=== PATIENT | male | born 1980 | race Caucasian/White ===

== ENCOUNTER 2024-06-02 15:34 | Emergency (ER) | payer BC, SELFPAY ==
--- OUTSIDE RECORDS SUMMARY | 2024-06-02 15:36 | XMS_ITS | Clinical Summary ---
Author Organization [employer] [facility] Address [address] [place] [address] Care Team Providers Care Gin Clerk Name Role Phone Magalis Alberto MD Primary Care Provider Allergies No known active allergies Medications clobetasol cream 0.05% (TEMOVATE) 0.05 % creamIndications: Rash Apply topically to affected area(s) two times daily. 30 g 10/06/19 23 Active lisinopriL (PRINIVIL; ZESTRIL) 20 mg tabletIndications :Hypertension, unspecified type Take 1 Tablet (20 mg) by mouth once daily. 90 Tablet 3 06/14/19 24 Active dextroamphetamine -amphetamine (ADDERALL XR) 15 mg Extended-Release capsuleIndication s:Attention deficit disorder, unspecified hyperactivity presence Take 1 Capsule (15 mg) by mouth once daily. 30 Capsule 09/27/19 24 Active dextroamphetamine -amphetamine (Adderall XR) 15 mg Extended-Release capsuleIndication s:Attention deficit hyperactivity disorder (ADHD), predominantly inattentive type Take 1 Capsule (15 mg) by mouth once daily. 30 Capsule 5 6:20 PM CDT 05/13/19 25 Active valACYclovir 1 gram tabletIndications :Herpes labialis Take 1 Tablet by mouth two times daily. 2 Tablet 05/19/19 25 Active valACYclovir (VALTREX) 1 gram tabletIndications :Herpes labialis Take 1 Tablet (1 g) by mouth two times daily. 2 Tablet 5 06/14/19 24 025 Discontinued dextroamphetamine -amphetamine (Adderall XR) 15 mg Extended-Release capsuleIndication s:Attention deficit hyperactivity disorder (ADHD), predominantly inattentive type Take 1 Capsule (15 mg) by mouth once daily. 30 Capsule 5 1:38 PM TUBE WORKER 04/12/19 25 025 Active Problems Problem Noted Date Diagnosed Date Elevated blood pressure reading 05/05/2021 Right groin pain 01/20/2016 Encounters Date Type Department Care Team Description 06/02/2024 Nurse Triage [facility] [address] [place] [address] Magalis Alberto MD Leg Pain/problem 05/16/2024 Refill [facility] [address] [place] [address] Magalis Alberto MD Refill Request (Valacyclovir) 03/13/2024 Refill [facility] [address] [place] [address] Magalis Alberto MD Refill Request (Adderall ) from Last 3 Months Immunizations Immunization Administration Dates Next Due DTP 12/03/1986, 5,08/03/1982,05/05/1982, 03/08/1982 Hepatitis B (Peds) 12/14/1997,03/16/1997, 997 Influenza, IIV3 (Age >=3 years) 10/19/2008,11/28 MMR 06/02/1994,05/16/1983 Oral Polio Vaccine 11/23/1986,10/23/1984, 983,03/08/1982 Td (Age >=7 Years) 09/17/1996 Tdap 11/19/2019,08/06/2006 Family History Relation Name Status Comments Father Alive Mother Alive Social History Tobacco Use Types Packs/Day Years Used Date Smoking Tobacco: Former Smokeless Tobacco: Never Tobacco Cessation:Counseling Given: Yes Alcohol Use Standard Drinks/Week Comments Yes 4 (1 standard drink = 0.6 oz pur e alcohol) weekends PHQ-2 Answer Date Recorded PHQ-2 TOTAL SCORE 0 11/18/2021 Social Connections Answer Date Recorded Frequency of Communication with Friends and Fami ly 0 12/15/2022 Financial Resource Strain Answer Date R ecorded Difficulty of Paying Living Expenses 3 12/15/2022 Difficulty of Paying Living Expenses Not on file 12/15/2022 Food Insecurity Answer Date Recorded Do you worry your food will run out before you are able to buy more? 1 12/15/2022 Transportation Needs Answer Date Record ed Lack of Transportation (Medical) 1 12/15/2022 Housing Stability Answer Date Recorded What is your housing situation today? 1 12/15/2022 Sex and Gender Information Value Date Recorded Sex Assigned at Not on file Legal Sex Male 7:20 AM TUBE WORKER Gender Identity Not on file Sexual Orientation Not on file Obstetrics History Last Filed Vital Signs Vital Sign Reading Time Taken Comments Blood Pressure 133/86 06/14/2023 8:03 AM CDT Pulse 98 06/14/2023 8:03 AM CDT Temperature 36.9 C (98.4 F) 09/26/2022 4:22 PM CDT Respiratory Rate 15 02/13/2019 4:12 PM TUBE WORKER Oxygen Saturation 100% 06/14/2023 8:03 AM CDT Inhaled Oxygen Concentration - - Weight 86.3 kg (190 lb 3.2 oz) 06/14/2023 8:03 A M CDT Height 170.2 cm (5' 7) 06/14/2023 8:03 AM CDT Body Mass Index 29.79 06/14/2023 8:03 AM CDT Plan of Treatment Health Maintenance Due Date Last Done Comments Depression screening for age 12+ 11/18/2022 11/18/2021, 02/13/2019, 07/30/2017, Additional history exists COVID-19 vaccine series ( season) 2023 BMI (ht and wt on same day) for age 18+ 06/13/2024 06/14/2023, 12/15/2022, 11/18/2021, Additional history exists Influenza Vaccine (Season Ended) 2024 10/19/2008, 11/29/2007 Lipids for age 35-44 11/05/2025 11/05/2020 Tetanus booster 11/18/2029 11/19/2019, 07/20, 09/17/1996 Tdap Completed 11/19/2019, 08/06/2006 Hepatitis C screening for age 18-79 Completed 11/18/2021 HIV for age 15-65 Completed 12/15/2022 Pneumococcal series for age 6-49 Aged Out No longer eligible based on patient's age to complete this topic Procedures Procedure Name Priority Date/Time Associated Diagnosis Comments ANTI HIV 1/2 Routine 12/15/2022 2:17 PM CDT Screening for HIV (human immunodeficiency virus) ANTI HCV Routine 11/18/2021 12:57 PM CDT Need for hepatitis C screening test LIPID PANEL W REFLEX MEASURED LDL Routine 11/05/2020 10:55 AM CDT Screening for lipid disorders from Last 3 Months or Most Recently Relevant to Health Maintenance Results * ANTI HIV 1/2 [50968.0] (12/15/2022 2:17 PM CDT) Pathologist [facility] HIV-1/HIV-2 SCREEN Non-Reacti ve Non-Reacti ve 12/16/2022 1:30 PM CDT [facility] Comment:HIV-1 p24 and HIV-1/ HIV-2 Ab Not Detected. Blood BLOOD SPECIMEN / Unknown Venipuncture / Unknown 12/15/2022 2:17 PM CDT 12/15/2022 2:17 PM CDT us Magalis Alberto MD SEND OUTS Final R [facility] [address] [place] [address], * ANTI HCV (11/18/2021 12:57 PM CDT) HEPATITIS C ANTIBODY Non-React rojas Non-React rojas 11/19/2021 10:10 AM CDT [facility] Comment:Antibodies to HCV no t detected; does not exclude the possibility of exposure to HCV. Blood BLOOD SPECIMEN / Unknown Venipuncture / Unknown 11/18/2021 12:57 PM CDT 11/18/2021 12:58 PM CDT us Magalis Alberto MD SEND OUTS Final R esult [facility] [address] [place] [address], [place] * LIPID PANEL W REFLEX MEASURED LDL [[id number]] (11/05/2020 10:55 AM CDT) CHOLESTEROL,TOTAL 192 100 - 199 mg/dL 11/05/2020 5:24 PM CDT [facility] TRIGLYCERIDES 100 <150 mg/dL 11/05/2020 5:24 PM CDT [facility] HDL CHOLESTEROL 49 >40 mg/dL 5:24 PM CDT [facility] NON-HDL CHOLESTEROL 143 <145 mg/dl 11/05/2020 5:24 PM CDT [facility] CHOL/HDL RATIO 3.92 <4.50 11/05/2020 5:24 PM CDT [facility] LDL CHOLESTEROL 123 <=130 mg/dL 11/05/2020 5:24 PM CDT [facility] VLDL CHOLESTEROL 20 <=30 mg/dL 11/05/2020 5:24 PM CDT [facility] PROVIDER ORDERED STATUS RANDOM 11/05/2020 5:24 PM CDT [facility] Blood BLOOD SPECIMEN / Unknown Venipuncture / Unknown 11/05/2020 10:55 AM CDT 11/05/2020 10:55 AM CDT us Magalis Alberto MD CHEMISTRY Final R esult [facility] [address] [place] [address], [place] from Last 3 Months or Most Recently Relevant to Health Maintenance Insurance [employer] [place] Care Teams Gin Clerk Relationship Specialty Start Date End Date Magalis Alberto MD [address] [place] [address] PCP - General Family Practice 05/03/17
[2024-06-02 15:40] VITALS: BP 117/78; PULSE 99; RESP 18; TEMP 37.2; O2SAT 99; BMI 29.0
--- NOTE | 2024-06-02 15:48 | CRLHL7_ITS ---
For Patients: As a result of the Century Cures Act, medical imaging exams and procedure reports are released immediately into your electronic medical record. You may view this report before your referring provider. If you have questions, please contact your health care provider. INDICATION: Right calf pain, immobilized due to rt ankle injury TECHNIQUE: Venous duplex ultrasound of the right lower extremity utilizing compression with green-scale, color Doppler, and spectral Doppler imaging. COMPARISON: None FINDINGS: Acute, occlusive deep vein thrombosis in the right posterior tibial and peroneal veins. There is no sonographic evidence of deep vein thrombosis in the right common femoral, deep femoral, superficial femoral, popliteal, or contralateral common femoral veins. There is no visualized superficial vein thrombosis. The soft tissues are unremarkable. IMPRESSION: Acute, occlusive deep vein thrombosis in the right posterior tibial and peroneal veins. Preliminary report was provided by the patient`s news director to the emergency department at approximately 4:50 p.m. on 06/02/2024. Dictated by Julien Bailey MD @ 06/02/2024 5:24:46 PM (Electronically Signed)
--- NOTE | 2024-06-02 17:50 | ED.GENADULT ---
HPI - General Adult General Chief complaint: Extremity Pain/Injury, Lower Stated complaint: Blood clot in right leg Time Seen by Provider: 06/02/24 17:13 History of Present Illness HPI narrative: This 43-year-old male comes in reporting pain in his right calf. He is wearing a walking boot but is currently not weight-bearing after an injury that occurred a couple weeks ago. He was recommended to have surgery to repair 3 major ligaments supporting his ankle but he declined this surgery partly because there was reassuring findings with stress or weight-bearing x-rays in the ortho department that were reassuring. After several days in the walking boot he had developed calf pain and comes in today. Ultrasound of the right lower extremity does show deep venous thrombosis. The patient does not report any chest pain or shortness of breath. He has normal vital signs. Related Data Home Medications ?Medication ?Instructions ?Recorded ?Confirmed dextroamphetamine-amphetamine ER 1 cap PO DAILY 06/02/24 06/02/24 15 mg 24hr capsule,extend release lisinopril 20 mg tablet 20 mg PO DAILY 06/02/24 06/02/24 Previous Rx's ?Medication ?Instructions ?Recorded apixaban 5 mg (74 tabs) tablets in See Rx Instructions PO .COMPLEX 06/02/24 a dose pack (Uplogix DVT-PE Treat #74 ea 30D Start) Allergies Allergy/AdvReac Type Severity Reaction Status Date / Time No Known Drug Allergies Allergy Verified 06/02/24 15:47 Review of Systems Status of ROS: Reports: 10 or more systems reviewed and unremarkable except as noted in History and below Narrative: Constitutional: No fevers, no weight gain or loss. Eyes: No discharge. No vision changes. HENT: No congestion, no sore throat, no ear pain. Cardiovascular: No chest pain, no palpitations. Respiratory: No shortness of breath, no wheezes, no cough. Gastrointestinal: No abdominal pain, no vomiting, no diarrhea. Genitourinary: No dysuria, no hematuria. Musculoskeletal: Right ankle injury in a boot. Right calf pain. Skin: No rashes, no pruritis. Neurological: No dizziness, weakness, sensory change, speech change. Endo/Heme/Allergies: No bruising or bleeding. No polydipsia. Pysch: no suicidality, no anxiety, no insomnia. All other systems reviewed and are negative. Exam Const: Vital Signs, click to edit/add: Vital Signs - 24 hr 06/02/24 15:40 Temperature 99.0 F Pulse Rate [Right Pulse Oximeter] 99 Respiratory Rate 18 Blood Pressure [Ri ght Forearm] 117/78 Pulse Oximetry 99 Oxygen Delivery Me thod Room Air Course Vital Signs Vital signs: Initial Vital Signs Temperature 99.0 F 06/02/24 15:40 Temperature Source Temporal Artery Scan 06/02/24 15:40 Pulse Rate 99 06/02/24 15:40 Pulse Rhythm Regular 06/02/24 15:40 Pulse Strength 3+ Normal 06/02/24 15:40 Respiratory Rate 18 06/02/24 15:40 Blood Pressure 117/78 06/02/24 15:40 Blood Pressure Mean 91 06/02/24 15:40 Blood Pressure Position Sitting 06/02/24 15:40 Pulse Oximetry 99 06/02/24 15:40 Oxygen Delivery Method Room Air 06/02/24 15:40 Vital Signs Temperature 99.0 F 06/02/24 15:40 Pulse Rate 99 06/02/24 15:40 Respiratory Rate 18 06/02/24 15:40 Blood Pressure 117/78 06/02/24 15:40 Pulse Oximetry 99 06/02/24 15:40 Oxygen Delivery Method Room Air 06/02/24 15:40 Temperature 99.0 F 06/02/24 15:40 Pulse Rate 99 06/02/24 15:40 Respiratory Rate 18 06/02/24 15:40 Blood Pressure 117/78 06/02/24 15:40 Pulse Oximetry 99 06/02/24 15:40 Oxygen Delivery Method Room Air 06/02/24 15:40 Medical Decision Making [facility] Narrative Medical decision making narrative: This patient comes in with pain in his right calf and ultrasound imaging shows evidence of deep venous thrombus. The patient does not have any abnormal vital signs and denies having any shortness of breath or chest pain. I did discuss the role of CT imaging of his lungs but indicated in any event that he needs to be on anticoagulant. He declined any further testing at this time. I did recommend Eliquis and the patient agrees to this plan. He received his 1st dose here and a prescription is provided for ongoing management. He has follow-up plans with his orthopedic doctor and will need to connect with his primary physician. Discharge Plan Discharge Clinical Impression: Deep venous thrombosis Patient Disposition: Home, Self-Care Condition: Unchanged Additional Instructions: Take medication as prescribed. Avoid and states. Follow up with primary physician for ongoing management. Prescriptions: New Eliquis DVT-PE Treat 30D Start 5 mg (74 tabs) tablets,dose pack See Rx Instructions PO .COMPLEX Qty: 74 0RF Rx Instructions: orally per package directions No Action lisinopril 20 mg tablet 20 mg PO DAILY dextroamphetamine-amphetamine 15 mg capsule,extended release 24hr 1 cap PO DAILY Follow Up/Referrals: Magalis Alberto MD [Primary Care Provider] - Stand Alone Forms: [employer] Info Instructions
[2024-06-02] MEDS: APIXABAN 5 MG TABLET 10 MG PO (18:19)
--- OUTSIDE RECORDS SUMMARY | 2024-06-02 18:26 | XMS_ITS | Clinical Summary ---
Author Organization [employer] [facility] Address [address] [place] [address] Care Team Providers Care Insect Control Inspector Name Role Phone Magalis Albetro MD Primary Care Provider Allergies No known [...] once daily. 30 Capsule 5 1:38 PM SALES MARKETING MANAGER 04/12/19 25 025 Active Problems Problem Noted Date Diagnosed Date Elevated blood pressure reading 05/05/2021 Right groin pain 01/20/2016 Encounters Date Type Department Care Team Description 06/02/2024 Nurse Triage [facility] [address] [place] [address] Magalis Alberto MD Leg Pain/problem 05/16/2024 Refill [facility] [address] [place] [address] Magalis Alberto MD Refill Request (Valacyclovir) 03/13/2024 Refill [facility] [address] [place] [address] Magalis Alberto MD Refill Request (Adderall ) [...] on file Legal 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 Gender Identity Not on file Sexual Orientation Not on file Obstetrics History Last Filed Vital Signs Vital Sign Reading Time Taken Comments Blood Pressure 133/86 06/14/2023 8:03 AM CDT Pulse 98 06/14/2023 8:03 AM CDT Temperature 36.9 C (98.4 F) 09/26/2022 4:22 PM CDT Respiratory Rate 15 02/13/2019 4:12 PM SALES MARKETING MANAGER Oxygen Saturation 100% 06/14/2023 8:03 AM CDT [...] Health Maintenance Results * ANTI HIV 1/2 [47376.0] (12/15/2022 2:17 PM CDT) Pathologist [facility] [place] HIV-1/HIV-2 SCREEN Non-Reacti ve Non-Reacti ve 12/16/2022 1:30 PM CDT [facility] Comment:HIV-1 p24 and HIV-1/ HIV-2 Ab Not Detected. Blood BLOOD SPECIMEN / Unknown Venipuncture / Unknown 12/15/2022 2:17 PM CDT 12/15/2022 2:17 PM CDT us Magalis Alberto MD SEND OUTS Final R es[facility] [address] [place] [address], * ANTI HCV (11/18/2021 12:57 PM CDT) HEPATITIS C ANTIBODY Non-React rojas Non-React rojas 11/19/2021 10:10 AM CDT [facility] Comment:Antibodies to HCV no t detected; does not exclude the possibility of exposure to HCV. Blood BLOOD SPECIMEN / Unknown Venipuncture / Unknown 11/18/2021 12:57 PM CDT 11/18/2021 12:58 PM CDT us Magalis Alberto MD SEND OUTS Final R esult [facility] [address] [place] [address], [place] * LIPID PANEL W REFLEX MEASURED LDL [[id number]] (11/05/2020 10:55 AM CDT) CHOLESTEROL,TOTAL 192 100 - 199 mg/dL 11/05/2020 5:24 PM CDT [facility] TRIGLYCERIDES 100 <150 mg/dL 11/05/2020 5:24 PM CDT [facility] HDL CHOLESTEROL 49 >40 mg/dL 5:24 PM CDT [facility] NON-HDL CHOLESTEROL 143 <145 mg/dl 11/05/2020 5:24 PM CDT [facility] CHOL/HDL RATIO 3.92 <4.50 11/05/2020 5:24 PM CDT [facility] LDL CHOLESTEROL 123 <=130 mg/dL 11/05/2020 5:24 PM CDT [facility] VLDL CHOLESTEROL 20 <=30 mg/dL 11/05/2020 5:24 PM CDT [facility] PROVIDER ORDERED STATUS RANDOM 11/05/2020 5:24 PM CDT [facility] Blood BLOOD SPECIMEN / Unknown Venipuncture / Unknown 11/05/2020 10:55 AM CDT 11/05/2020 10:55 AM CDT us Magalis Alberto MD CHEMISTRY Final R esult [facility] [address] [place] [address], [place] from Last 3 Months or Most Recently Relevant to Health Maintenance Insurance [place] [address] Care Teams Insect Control Inspector Relationship Specialty Start Date End Date Magalis Alberto MD [address] [place] [address] PCP - General Family Practice 05/03/17
== END 2024-06-02 18:29 | disposition home or self-care (01) ==
LOC: ED 18:24
PROVIDERS: Emergency Provider Emergency Medicine Emergency Medical Services; PCP Family Medicine
DX: I82.4Z1 Acute embolism and thrombosis of unspecified deep veins of right distal lower extremity (principal)
CPT/HCPCS: 93971; 99284; A9270

== ENCOUNTER 2024-06-03 06:33 | Emergency (ER) | payer BC, SELFPAY ==
--- OUTSIDE RECORDS SUMMARY | 2024-06-03 06:36 | XMS_ITS | Clinical Summary ---
Author Organization [employer] [facility] Address [address] [place] [address] Care Team Providers Care Experimental Technician Name Role Phone Magalis Alberto MD Primary [...] once daily. 30 Capsule 5 1:38 PM COLOR CHECKER 04/12/19 25 025 Active Problems Problem Noted Date Diagnosed Date Elevated blood pressure reading 05/05/2021 Right groin pain 01/20/2016 Encounters Date Type Department Care Team Description 06/02/2024 Nurse Triage [facility] [address] [place] [address] Magalis Alberto MD Leg Pain/problem 05/16/2024 Refill [facility] [address] [place] [address] Magalis Alberto MD Refill Request (Valacyclovir) 03/13/2024 Refill [facility] [address] [place] [address] Magalis Alberto MD Refill Request (Adderall ) [...] on file Legal Sex Male 7:20 AM COLOR CHECKER Gender Identity Not on file Sexual Orientation Not on file Obstetrics History Last Filed Vital Signs Vital Sign Reading Time Taken Comments Blood Pressure 133/86 06/14/2023 8:03 AM CDT Pulse 98 06/14/2023 8:03 AM CDT Temperature 36.9 C (98.4 F) 09/26/2022 4:22 PM CDT Respiratory Rate 15 02/13/2019 4:12 PM COLOR CHECKER Oxygen Saturation 100% 06/14/2023 8:03 AM CDT [...] Health Maintenance Results * ANTI HIV 1/2 [[id number]] (12/15/2022 2:17 PM CDT) Pathologist [facility] HIV-1/HIV-2 SCREEN Non-Reacti ve Non-Reacti ve 12/16/2022 1:30 PM CDT [facility] Comment:HIV-1 p24 and HIV-1/ HIV-2 Ab Not Detected. Blood BLOOD SPECIMEN / Unknown Venipuncture / Unknown 12/15/2022 2:17 PM CDT 12/15/2022 2:17 PM CDT us Magalis Alberto MD SEND OUTS Final R [facility] [address] [place] [address], * ANTI HCV (11/18/2021 12:57 PM CDT) [...] Alberto MD SEND OUTS Final R esult [facility] [address] [place] [address], [place] * LIPID PANEL W REFLEX MEASURED LDL [[id number]] (11/05/2020 10:55 AM CDT) CHOLESTEROL,TOTAL 192 100 - 199 mg/dL 11/05/2020 5:24 PM CDT [facility] TRIGLYCERIDES 100 <150 mg/dL 11/05/2020 5:24 PM CDT [facility] HDL CHOLESTEROL 49 >40 mg/dL 5:24 PM CDT [facility] NON-HDL CHOLESTEROL 143 <145 mg/dl 11/05/2020 5:24 PM CDT [facility] CHOL/HDL RATIO 3.92 <4.50 11/05/2020 5:24 PM CDT [facility] LDL CHOLESTEROL 123 <=130 mg/dL 11/05/2020 5:24 PM CDT [facility] VLDL CHOLESTEROL 20 <=30 mg/dL 11/05/2020 5:24 PM CDT [facility] PROVIDER ORDERED STATUS RANDOM 11/05/2020 5:24 PM CDT [facility] Blood BLOOD SPECIMEN / Unknown Venipuncture / Unknown 11/05/2020 10:55 AM CDT 11/05/2020 10:55 AM CDT us Magalis Alberto MD CHEMISTRY Final R esult [facility] [address] [place] [address], [place] from Last 3 Months or Most Recently Relevant to Health Maintenance Insurance [place] [address] Care Teams Experimental Technician Relationship Specialty Start Date End Date Magalis Alberto MD [address] [place] [address] PCP - General Family Practice 05/03/17
[2024-06-03 06:41] VITALS: BP 141/93; PULSE 89; RESP 20; TEMP 36.3; O2SAT 100; BMI 29.0
--- NOTE | 2024-06-03 06:51 | ED.GENADULT ---
HPI - General Adult General Chief complaint: Shortness of Breath/Dyspnea Stated complaint: right leg blood cloth- shortness breath Time Seen by Provider: 06/03/24 06:51 History of Present Illness HPI narrative: Patient returns to [facility] with c/o shortness of breath and chest congestion. Patient was dx with DVT last night at given his first dose of Eliquis. Patient denies new pain. 43-year-old man presenting to the emergency department with concern of shortness of breath perhaps. 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 Is not really having pain he is not feeling otherwise short of breath no lightheadedness. Has been feeling generally warm for some time. No head cold symptoms or fever otherwise. Recent DVT diagnosis comes following a period of immobility with injury to the right ankle. Reviewing imaging shows that there was a DVT diagnosed yesterday in the right posterior tibial and peroneal veins. 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 He is wondering if this might be some other reason for his chest symptoms. INDICATION: Right calf pain, immobilized due to rt ankle injury TECHNIQUE: Venous duplex ultrasound of the right lower extremity utilizing compression with green-scale, color Doppler, and spectral Doppler imaging. COMPARISON: None FINDINGS: Acute, occlusive deep vein thrombosis in the right posterior tibial and peroneal veins. There is no sonographic evidence of deep vein thrombosis in the right common femoral, deep femoral, superficial femoral, popliteal, or contralateral common femoral veins. There is no visualized superficial vein thrombosis. The soft tissues are unremarkable. IMPRESSION: Acute, occlusive deep vein thrombosis in the right posterior tibial and peroneal veins. Preliminary report was provided by the patient`s aperture mask etcher to the emergency department at approximately 4:50 p.m. on 06/02/2024. Dictated by Julien Bailey MD @ 06/02/2024 5:24:46 PM Related Data Home Medications ?Medication ?Instructions ?Recorded ?Confirmed dextroamphetamine-amphetamine ER 1 cap PO DAILY 06/02/24 06/02/24 15 mg 24hr capsule,extend release lisinopril 20 mg tablet 20 mg PO DAILY 06/02/24 06/02/24 Previous Rx's ?Medication ?Instructions ?Recorded apixaban 5 mg (74 tabs) tablets in See Rx Instructions PO .COMPLEX 06/02/24 a dose pack (Eliquis DVT-PE Treat #74 ea 30D Start) Allergies Allergy/AdvReac Type Severity Reaction Status Date / Time No Known Drug Allergies Allergy Verified 06/02/24 15:47 Review of Systems Status of ROS: Reports: 6 or more systems reviewed and unremarkable except as noted in History and below Exam Narrative: Exam Narrative: Appears generally well. Here with healing scooter and walking boot. Breathing easily. Lungs are clear. Heart in regular rate and rhythm without murmur rub or gallop. Const: Vital Signs, click to edit/add: Vital Signs - 24 hr 06/03/24 06:41 Temperature 97.4 F L Pulse Rate [Right Pulse Oximeter] 89 Respiratory Rate 20 Blood Pressure [Le ft Forearm] 141/93 H Pulse Oximetry 100 Oxygen Delivery Me thod Room Air Documenting provider has reviewed patient's vital signs: yes Course Vital Signs Vital signs: Initial Vital Signs Respiratory Depth Normal 06/03/24 06:35 Vital Signs Temperature 97.4 F L 06/03/24 06:41 Pulse Rate 89 06/03/24 06:41 Respiratory Rate 20 06/03/24 06:41 Blood Pressure 141/93 H 06/03/24 06:41 Pulse Oximetry 100 06/03/24 06:41 Oxygen Delivery Method Room Air 06/03/24 06:41 Temperature 97.4 F L 06/03/24 06:41 Pulse Rate 89 06/03/24 06:41 Respiratory Rate 20 06/03/24 06:41 Blood Pressure 141/93 H 06/03/24 06:41 Pulse Oximetry 100 06/03/24 06:41 Oxygen Delivery Method Room Air 06/03/24 06:41 Medical Decision Making MDM Narrative Medical decision making narrative: Generally well. Vitals look good. No symptoms to suggest other infectious etiology or pneumothorax I think. Subtle really. I think chance of something else being present is minimal. I agree and suspect that some of this is stress related. Did offer further workup but after discussion in mutually agreed process decided to defer further imaging. Low risk with Wells criteria however he is already anticoagulated. You generally appear well here today. I am reassured by your vitals and your symptoms. We discussed doing a larger workup though you are receiving appropriate treatment for your lungs as well. Return for persistent and increasing shortness of breath or chest pain, lightheadedness. Medical Records Medical records reviewed: Yes I reviewed the patient's medical records Discharge Plan Discharge Clinical Impression: DVT (deep venous thrombosis), Other social stressor Patient Disposition: Home, Self-Care Condition: Stable Additional Instructions: You generally appear well here today. I am reassured by your vitals and your symptoms. We discussed doing a larger workup though you are receiving appropriate treatment for your lungs as well. Return for persistent and increasing shortness of breath or chest pain, lightheadedness. Prescriptions: No Action lisinopril 20 mg tablet 20 mg PO DAILY dextroamphetamine-amphetamine 15 mg capsule,extended release 24hr 1 cap PO DAILY Eliquis DVT-PE Treat 30D Start 5 mg (74 tabs) tablets,dose pack See Rx Instructions PO .COMPLEX Qty: 74 0RF Rx Instructions: orally per package directions Follow Up/Referrals: Magalis Alberto MD [Primary Care Provider] - Stand Alone Forms: [email or web address] Info Instructions
--- OUTSIDE RECORDS SUMMARY | 2024-06-03 07:28 | XMS_ITS | Clinical Summary ---
Author Organization [facility] Address [address] [place] [id number] Care Team Providers Care Peeled Potato Inspector Name Role Phone Magalis Alberto MD Primary [...] once daily. 30 Capsule 5 1:38 PM MANAGER STYLIST 04/12/19 25 025 Active Problems Problem Noted Date Diagnosed Date Elevated blood pressure reading 05/05/2021 Right groin pain 01/20/2016 Encounters Date Type Department Care Team Description 06/02/2024 Nurse Triage [facility] [address] [place] [address] Magalis Alberto MD Leg Pain/problem 05/16/2024 Refill [facility] [address] [place] [address] Magalis Alberto MD Refill Request (Valacyclovir) 03/13/2024 Refill [facility] [address] [place] [address] Magalis Alberto MD Refill Request (Adderall ) [...] on file Legal 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 Gender Identity Not on file Sexual Orientation Not on file Obstetrics History Last Filed Vital Signs Vital Sign Reading Time Taken Comments Blood Pressure 133/86 06/14/2023 8:03 AM CDT Pulse 98 06/14/2023 8:03 AM CDT Temperature 36.9 C (98.4 F) 09/26/2022 4:22 PM CDT Respiratory Rate 15 02/13/2019 4:12 PM MANAGER STYLIST Oxygen Saturation 100% 06/14/2023 8:03 AM CDT [...] Health Maintenance Results * ANTI HIV 1/2 [52943.0] (12/15/2022 2:17 PM CDT) Pathologist [facility] HIV-1/HIV-2 SCREEN Non-Reacti ve Non-Reacti ve 12/16/2022 1:30 PM CDT [facility] Comment:HIV-1 p24 and HIV-1/ HIV-2 Ab Not Detected. Blood BLOOD SPECIMEN / Unknown Venipuncture / Unknown 12/15/2022 2:17 PM CDT 12/15/2022 2:17 PM CDT us Magalis Alberto MD SEND OUTS [facility] [address] [place] [address], * ANTI HCV (11/18/2021 12:57 PM CDT) HEPATITIS C ANTIBODY Non-React rojas Non-React rojas 11/19/2021 10:10 AM CDT [facility] Comment:Antibodies to HCV no t detected; does not exclude the possibility of exposure to HCV. Blood BLOOD SPECIMEN / Unknown Venipuncture / Unknown 11/18/2021 12:57 PM CDT 11/18/2021 12:58 PM CDT us Magalis Alberto MD SEND OUTS Final R esult [facility] [employer] [address] [place] [address], [place] * LIPID PANEL W REFLEX MEASURED LDL [[id number]] (11/05/2020 10:55 AM CDT) CHOLESTEROL,TOTAL 192 100 - 199 mg/dL 11/05/2020 5:24 PM CDT [facility] TRIGLYCERIDES 100 <150 mg/dL 11/05/2020 5:24 PM CDT [facility] HDL CHOLESTEROL 49 >40 mg/dL 5:24 PM CDT [facility] NON-HDL CHOLESTEROL 143 <145 mg/dl 11/05/2020 5:24 PM CDT [facility] CHOL/HDL RATIO 3.92 <4.50 11/05/2020 5:24 PM CDT [facility] LDL CHOLESTEROL 123 <=130 mg/dL 11/05/2020 5:24 PM CDT [facility] VLDL CHOLESTEROL 20 <=30 mg/dL 11/05/2020 5:24 PM CDT [facility] PROVIDER ORDERED STATUS RANDOM 11/05/2020 5:24 PM CDT [facility] Blood BLOOD SPECIMEN / Unknown Venipuncture / Unknown 11/05/2020 10:55 AM CDT 11/05/2020 10:55 AM CDT us Magalis Alberto MD CHEMISTRY Final R esult [facility] [address] [place] [address], [place] from Last 3 Months or Most Recently Relevant to Health Maintenance Insurance [place] Care Teams Peeled Potato Inspector Relationship Specialty Start Date End Date Magalis Alberto MD [address] [place] [address] PCP - General Family Practice 05/03/17
== END 2024-06-03 07:47 | disposition home or self-care (01) ==
PROVIDERS: Emergency Provider Family Medicine; PCP Family Medicine
DX: I82.401 Acute embolism and thrombosis of unspecified deep veins of right lower extremity (principal); F43.89 Other reactions to severe stress
CPT/HCPCS: 99282; 99283